=== PATIENT | male | born 1970 | race Caucasian/White ===

== ENCOUNTER 2018-01-21 07:41 | Emergency (ER) | payer OTHER ==
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
[2018-01-21] MEDS ORDERED: TYLENOL EXTRA STRENGTH 500 MG ONE (08:01)
[2018-01-21] MEDS: TYLENOL EXTRA STRENGTH 500 MG PO STA (08:17)
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
[2018-01-21 09:11] VITALS: BP 99/52; PULSE 75; O2SAT 97
== END 2018-01-21 09:20 | disposition home or self-care (01) ==
LOC: ED 07:41
DX: S06.0X0A Concussion without loss of consciousness, initial encounter (principal); Y04.0XXA Assault by unarmed brawl or fight, initial encounter; R42 Dizziness and giddiness; R51 Headache; E78.00 Pure hypercholesterolemia, unspecified; I10 Essential (primary) hypertension; J44.9 Chronic obstructive pulmonary disease, unspecified; J45.909 Unspecified asthma, uncomplicated; E11.9 Type 2 diabetes mellitus without complications
CPT/HCPCS: 70450; 70486; 72125; 99283; A9270-GY

== ENCOUNTER 2020-11-16 19:44 | Emergency (ER) | payer OTHER ==
[2020-11-16] MEDS ORDERED: Catapres 0.1 MG PO ONE (20:13)
[2020-11-16] MEDS ORDERED: Catapres 0.1 MG ONE (20:17)
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
[2020-11-16] MEDS ORDERED: Zofran 4 MG/2 ML VIAL IV ONE (21:06)
[2020-11-16] MEDS ORDERED: SUBLIMAZE 100 MCG/2 ML IV ONE ×2 (21:06→22:58)
[2020-11-16] MEDS ORDERED: Zofran 4 MG/2 ML VIAL ONE (21:22)
[2020-11-16] MEDS ORDERED: SUBLIMAZE 100 MCG/2 ML ONE ×2 (21:23→23:04)
[2020-11-16] MEDS ORDERED: Catapres TTS-2 PATCH TOP SCH (23:00)
[2020-11-16] MEDS ORDERED: Catapres TTS-2 PATCH ONE (23:08)
[2020-11-16 23:36] VITALS: BP 116/75; PULSE 76; O2SAT 94
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
== END 2020-11-16 23:47 | disposition home or self-care (01) ==
LOC: ED 19:44
DX: R51.9 Headache, unspecified (principal); I10 Essential (primary) hypertension
CPT/HCPCS: 70450; 72125; 96374; 96375; 96376; 99284; J2405; J3010; A9270-GY